=== PATIENT | female | born 1990 | race Caucasian/White ===

== ENCOUNTER → 2018-05-20 | Outpatient (REF) | payer BC ==
[2018-05-20 18:02] LABS: HEMATOCRIT 38.3 % (36.0-47.0); HEMOGLOBIN 13.2 g/dl (12.0-15.5); MEAN CORPUSCULAR HEMOGLOBIN 31.7 pg (27.0-33.0); MEAN CORPUSCULAR HGB CONC 34.5 g/dl (32.0-36.5); MEAN CORPUSCULAR VOLUME 91.8 fl (80.0-96.0); PLATELET COUNT, AUTOMATED 240 10^3/uL (150-450); RED BLOOD COUNT 4.17 10^6/uL (4.00-5.40); WHITE BLOOD COUNT 8.7 10^3/uL (4.0-10.0)
[2018-05-20 18:44] LABS: HCG, SERUM QUANTITATIVE 78298 MIU/ML
[2018-05-21 11:57] LABS: RUBELLA IgG QUALITATIVE IMMUNE (IMMUNE)
[2018-05-21 12:09] LABS: HBsAg Prenatal NEGATIVE (NEGATIVE)
[2018-05-21 12:27] LABS: HEPATITIS C VIRUS ABY INDEX < 0.0 INDEX (<0.8)
[2018-05-21 12:27] LABS: HIV 1&2 SCREEN CENTAUR NEGATIVE (NEGATIVE)
== END ==
LOC: M LAB REF 16:56
DX: O36.80X0 Pregnancy with inconclusive fetal viability, not applicable or unspecified (principal); Z3A.00 Weeks of gestation of pregnancy not specified
CPT/HCPCS: 86762

== ENCOUNTER → 2018-08-10 | Outpatient (REF) | payer BC | LOC: M LAB REF 13:30 | DX: Z34.02 Encounter for supervision of normal first pregnancy, second trimester (principal) | CPT/HCPCS: 87186 ==

== ENCOUNTER → 2018-10-28 | Outpatient (REF) | payer BC | LOC: M LAB REF 16:52 | PROVIDERS: ATTEND Obstetrics & Gynecology | DX: Z34.03 Encounter for supervision of normal first pregnancy, third trimester (principal) ==

== ENCOUNTER 2018-12-08 00:53 | Inpatient (IN) | payer BC ==
[2018-12-08] VITALS (48 sets, daily range): BP systolic 123–187; BP diastolic 61–102
[~2018-12-08] VITALS: Ht 165.1 cm; Wt 83.6 kg
[2018-12-08 02:53] LABS: HEMATOCRIT 37.4 % (36.0-47.0); HEMOGLOBIN 12.3 g/dl (12.0-15.5); MEAN CORPUSCULAR HEMOGLOBIN 30.2 pg (27.0-33.0); MEAN CORPUSCULAR HGB CONC 32.9 g/dl (32.0-36.5); MEAN CORPUSCULAR VOLUME 91.9 fl (80.0-96.0); PLATELET COUNT, AUTOMATED 208 10^3/uL (150-450); RED BLOOD COUNT 4.07 10^6/uL (4.00-5.40); WHITE BLOOD COUNT 13.4 10^3/uL (4.0-10.0)
[2018-12-08] MEDS ORDERED: FENTANYL 2MCG/ML ROPIVACAINE 0.2% IN 0.9% NACL 100ML IVBAG As Ordered ONE (03:05)
[2018-12-08] MEDS ORDERED: AMPICILLIN 2 GM VIAL As Ordered ONE (03:31)
[2018-12-08] MEDS ORDERED: PRENTAB9 PO (03:56)
[2018-12-08] MEDS ORDERED: AMPICILLIN SOD 2 GM in D5W MINI-BAG PLUS 100 ML IV ONE (04:00)
[2018-12-08] MEDS: FENTANYL/ROPIVACAINE/NACL BAG 100 ML EPIDURAL SCH ×2 (04:42→11:28)
[2018-12-08] MEDS ORDERED: NALOXONE INJ 0.4 MG/1 ML VIAL (J2310) IV PRN (04:53)
[2018-12-08] MEDS ORDERED: EPIDURAL/PCA KEYS XX PRN (04:53)
[2018-12-08] MEDS ORDERED: ONDANSETRON 4MG/2ML VIAL (J2405) IV PRN (04:53)
[2018-12-08] MEDS ORDERED: ePHEDrine SULFATE 25 MG/5 ML(5MG/ML) SYRINGE IV PRN (04:53)
[2018-12-08] MEDS ORDERED: EPIDURAL COMMENT XX SCH (04:53)
[2018-12-08] MEDS ORDERED: LACTATED RINGER'S 1000 ML IV PRN (04:53)
[2018-12-08] MEDS ORDERED: REFRIGERATOR IV KEYS XX PRN (04:53)
[2018-12-08] MEDS ORDERED: diphenhydrAMINE INJ 50MG/ML VIAL (J1200) IV PRN (04:53)
[2018-12-08] MEDS ORDERED: OXYTOCIN DRIP 30 UNITS in APPROPRIATE DILUENT 1 EA IV SCH ×2 (05:15→14:30)
[2018-12-08] MEDS: AMPICILLIN SOD 1 GM in D5W MINI-BAG PLUS 50 ML IV SCH ×2 (08:08→12:14)
[2018-12-08] MEDS: PRENATAL VITAMINS CHEWABLE TABLET PO SCH (09:00)
[2018-12-08] MEDS ORDERED: DIBUCAINE 1% OINTMENT 30GM TOP PRN (14:15)
[2018-12-08] MEDS ORDERED: LR 1,000 ML IV SCH (14:15)
[2018-12-08] MEDS ORDERED: RHOGAM 300 MCG (1500 IU) INJ (J2790) IM SCH (14:15)
[2018-12-08] MEDS ORDERED: METHYLERGONOVINE MALEATE 0.2 MG TAB PO PRN (14:15)
[2018-12-08] MEDS ORDERED: MEASLES,MUMPS,RUBELLA VACCINE INJ (MMR-II) (90707) SC SCH (14:15)
[2018-12-08 14:20] LABS: CORD GAS ABE A -6.1; CORD GAS HCO3 A 22.1 MEQ/L; CORD GAS O2 SAT A 72.4 %; CORD GAS PCO2 A 53.9 mmHg; CORD GAS PH A 7.231 UNITS; CORD GAS PO2 A 35.5 mmHg; CORD GAS SBC A 18.9 MEQ/L; CORD GAS TCO2 A 23.8 MEQ/L
[2018-12-08 14:24] LABS: CORD GAS HCO3 V 19.8 MEQ/L; CORD GAS O2 SAT V 73.6 %; CORD GAS PCO2 V 40.2 mmHg; CORD GAS PH V 7.311 UNITS; CORD GAS PO2 V 33.1 mmHg; CORD GAS SBC V 19.1 MEQ/L; CORD GAS TCO2 V 21.1 MEQ/L
[2018-12-08] MEDS: IBUPROFEN 800 MG TAB PO PRN (14:59)
[2018-12-08] MEDS: DOCUSATE SODIUM 100 MG CAP PO SCH (20:48)
[2018-12-08] MEDS: ACETAMINOPHEN 500 MG TAB PO PRN (21:12)
[2018-12-09] MEDS: IBUPROFEN 800 MG TAB PO PRN ×2 (01:00→23:12)
[2018-12-09 06:00] VITALS: BP 134/82
[2018-12-09] MEDS: PRENATAL VITAMINS CHEWABLE TABLET PO SCH (08:29)
[2018-12-09] MEDS: ACETAMINOPHEN 500 MG TAB PO PRN (08:29)
[2018-12-09] MEDS: DOCUSATE SODIUM 100 MG CAP PO SCH ×2 (08:29→21:00)
--- NOTE | 2018-12-09 11:22 | HPE ---
DATE OF ADMISSION: 12/08/2018 HISTORY: Jenifer is a 28-year-old female, 1, para 0, with an expected date of confinement (EDC) of 12/02/2018, estimated gestational age (EGA) of 40-6/7 weeks gestation who presented to labor and delivery with complaints of contractions. Upon evaluation, she was found to be in active labor. At this point, a decision was made for admission. Her record was reviewed which was essentially unremarkable. LABS: Blood type is O+, rubella immune, hepatitis negative, HIV negative, GC and chlamydia negative. 1-hour sugar testing was within normal limits. Her GBS is negative. PAST MEDICAL HISTORY: Denies. PAST SURGICAL HISTORY: [place] tooth extraction. SOCIAL HISTORY: The patient is single. Denies any alcohol, drugs or cigarette smoking. REVIEW OF SYSTEMS: Unremarkable. MEDICATIONS: vitamin. ALLERGIES: No known drug allergies. PHYSICAL EXAMINATION ON ADMISSION: HEENT: Grossly within normal limits. Abdomen: Soft, nontender, nondistended. Extremities: No clubbing, cyanosis or edema. Vaginal Exam: 5 cm, 100%, fetus at -1 station in a vertex position. Tracing reviewed, category one tracing. ASSESSMENT: Intrauterine at 40-6/7 weeks gestation in labor. PLAN: Admit to labor and delivery. Routine labs sent. Pain management discussed. The patient opts for an epidural. Will continue to monitor. Anticipate delivery.
--- NOTE | 2018-12-09 11:54 | DN ---
DATE OF DELIVERY: 12/08/2018 Jenifer is a 28-year-old female, 1, para 0, who was admitted at 40-6/7 weeks gestation in active labor. She progressed to fully dilated, pushed for approximately an hour and a half, delivered a live male in occiput anterior position. scores 9/9, birthweight 8 pounds 6 ounces. Placenta delivered spontaneously intact, two-vessel cord. A second-degree midline perineal laceration was noted which was repaired using #2-0 chromic. Estimated blood loss 350 mL. Both mother and baby in stable condition.
[2018-12-09 18:00] VITALS: BP 144/75
[2018-12-10 06:08] VITALS: BP 125/67
[2018-12-10] MEDS: PRENATAL VITAMINS CHEWABLE TABLET PO SCH (08:36)
[2018-12-10] MEDS: DOCUSATE SODIUM 100 MG CAP PO SCH (08:36)
[2018-12-10] MEDS ORDERED: MAPA500T2 PO (10:15)
[2018-12-10] MEDS ORDERED: IBUP-1114 PO (10:15)
== END 2018-12-10 11:36 | disposition home or self-care (01) | DRG 560 ==
LOC: M LDO 00:53 → M OBS 02:22 → M LDI 03:07 → M OBS 16:42
PROVIDERS: ADMIT Obstetrics & Gynecology; ATTEND Obstetrics & Gynecology
PROC: 10E0XZZ Delivery of Products of Conception, External Approach (ICD-10-PCS; principal; 2018-12-08)
PROC: 0KQM0ZZ Repair Perineum Muscle, Open Approach (ICD-10-PCS; 2018-12-08)
DX: O48.0 Post-term pregnancy (principal); O70.1 Second degree perineal laceration during delivery; Z3A.40 40 weeks gestation of pregnancy; Z37.0 Single live birth

== ENCOUNTER → 2019-12-20 | Outpatient (REF) | payer BC ==
[~2019-12-20] MED LIST: IBUP-1114 PO; MAPA500T2 PO; PRENTAB9 PO
[2019-12-20 21:53] LABS: INFLUENZA A AMPLIFICATION NEGATIVE (NEGATIVE); INFLUENZA B AMPLIFICATION NEGATIVE (NEGATIVE)
== END ==
LOC: M LAB 21:06
PROVIDERS: ATTEND Physician Assistant
DX: R50.9 Fever, unspecified (principal)

== ENCOUNTER → 2020-01-02 | Outpatient (REF) | payer BC ==
[2020-01-02 21:07] LABS: INFLUENZA A AMPLIFICATION NEGATIVE (NEGATIVE); INFLUENZA B AMPLIFICATION NEGATIVE (NEGATIVE)
== END ==
LOC: M LAB REF 20:13
PROVIDERS: ATTEND Physician Assistant Medical
DX: J11.1 Influenza due to unidentified influenza virus with other respiratory manifestations (principal)

== ENCOUNTER → 2020-09-06 | Outpatient (REF) | payer BC ==
[2020-09-06 17:06] LABS: HEMATOCRIT 37.7 % (36.0-47.0); HEMOGLOBIN 12.2 g/dl (12.0-15.5); MEAN CORPUSCULAR HEMOGLOBIN 30.7 pg (27.0-33.0); MEAN CORPUSCULAR HGB CONC 32.4 g/dl (32.0-36.5); MEAN CORPUSCULAR VOLUME 94.7 fl (80.0-96.0); PLATELET COUNT, AUTOMATED 199 10^3/uL (150-450); RED BLOOD COUNT 3.98 10^6/uL (4.00-5.40)
[2020-09-06 17:59] LABS: HCG, SERUM QUANTITATIVE 122875 MIU/ML; HEPATITIS B SURFACE ANTIGEN NEGATIVE (NEGATIVE)
== END ==
LOC: M LAB REF 16:22
PROVIDERS: ATTEND Obstetrics & Gynecology
DX: Z32.01 Encounter for pregnancy test, result positive (principal)

== ENCOUNTER → 2020-09-12 | Outpatient (CLI) | payer OTHER ==
--- NOTE | 2020-09-13 08:45 | REP ---
INDICATION: 036.80 DATING/VIABILITY/INCONSLUSIVE VIABILITY COMPARISON: None. TECHNIQUE: Transabdominal obstetrical ultrasound with color Doppler evaluation. FINDINGS: Single live early intrauterine is appreciated. Gestational sac with yolk sac and pole identified. [place]-rump length of 18 mm corresponds to 8 weeks 2 days gestational age with estimated date of delivery 04/22/2021. heart rate equals 170 beats per minute. No gross abnormalities are identified. Left maternal ovary includes 4.4 x 4.3 x 2.9 cm cyst likely corpus luteum. IMPRESSION: Single live early intrauterine at 8 weeks 2 days gestational age. Complete anatomical assessment should be performed and 19-20 weeks. <Electronically signed by Ramon Soares > 09/13/20 [id number]
== END ==
LOC: M WHC 11:33
PROVIDERS: ATTEND Obstetrics & Gynecology
DX: O36.80X0 Pregnancy with inconclusive fetal viability, not applicable or unspecified (principal)

== ENCOUNTER → 2020-10-04 | Outpatient (REF) | payer OTHER ==
[2020-10-04 15:10] LABS: HIV 1&2 SCREEN CENTAUR NEGATIVE (NEGATIVE)
== END ==
LOC: M LAB REF 12:36
PROVIDERS: ATTEND Obstetrics & Gynecology
DX: Z34.81 Encounter for supervision of other normal pregnancy, first trimester (principal)

== ENCOUNTER → 2020-12-06 | Outpatient (CLI) | payer OTHER ==
--- NOTE | 2020-12-07 04:17 | REP ---
INDICATION: ANATOMY COMPARISON: 09/12/2020 TECHNIQUE: Transabdominal obstetrical ultrasound with color Doppler evaluation. FINDINGS: Examination demonstrates a single live intrauterine in breech presentation. motion is identified by technologist. Placenta is noted anterior and grade 1 without evidence for placenta previa or abruption. Amniotic fluid volume is normal. Cervix measures 3.8 cm in length and appears closed.. Gestational age by LMP 21 weeks 0 days with ALEJANDRINA 04/18/2021. Gestational age by current measurements 21 weeks 1 day with ALEJANDRINA 04/17/2021. FHR equals 156 beats per minute. BPD: 4.7 cm twenty weeks 1 day HC: 18.2 cm 20 weeks 4 days AC: 17.5 cm there is 22 weeks 3 days FL: 3.5 cm 21 weeks 1 day HL: 3.4 cm 21 weeks 4 days HC/AC: 1.04 Estimated weight 442 grams (53rdpercentile). Anatomical assessment demonstrates normal structures including cranium, choroid plexus, cavum, cerebellum/posterior fossa, facial features, lungs, four-chamber heart/ventricular outflow tracts, diaphragm, stomach, cord insertion/three-vessel cord, kidneys/bladder, spine, and extremities. IMPRESSION: Single live intrauterine in breech presentation demonstrating appropriate estimated weight and growth. Anatomical assessment is complete and normal. <Electronically signed by Ramon Soares > 12/07/20 [id number]
== END ==
LOC: M WHC 13:32
PROVIDERS: ATTEND Obstetrics & Gynecology
DX: Z36.9 Encounter for antenatal screening, unspecified (principal); Z3A.21 21 weeks gestation of pregnancy

== ENCOUNTER → 2021-02-22 | Outpatient (CLI) | payer OTHER ==
[2021-02-22 08:13] LABS: HEMOGLOBIN 10.9 g/dl (12.0-15.5); MEAN CORPUSCULAR HEMOGLOBIN 29.2 pg (27.0-33.0); MEAN CORPUSCULAR HGB CONC 32.1 g/dl (32.0-36.5); MEAN CORPUSCULAR VOLUME 91.2 fl (80.0-96.0); PLATELET COUNT, AUTOMATED 214 10^3/uL (150-450); RED BLOOD COUNT 3.73 10^6/uL (4.00-5.40); WHITE BLOOD COUNT 8.8 10^3/uL (4.0-10.0)
== END ==
LOC: M LAB 06:44
PROVIDERS: ATTEND Advanced Practice Midwife
DX: Z34.82 Encounter for supervision of other normal pregnancy, second trimester (principal); Z3A.00 Weeks of gestation of pregnancy not specified

== ENCOUNTER → 2021-02-26 | Outpatient (CLI) | payer OTHER | LOC: M LAB 08:25 | PROVIDERS: ATTEND Advanced Practice Midwife | DX: O99.810 Abnormal glucose complicating pregnancy (principal) ==

== ENCOUNTER → 2021-03-22 | Outpatient (REF) | payer OTHER | LOC: M LAB REF 12:02 | PROVIDERS: ATTEND Advanced Practice Midwife | DX: Z34.83 Encounter for supervision of other normal pregnancy, third trimester (principal) ==

== ENCOUNTER 2021-04-21 02:25 | Inpatient (IN) | payer OTHER ==
[2021-04-21] VITALS (23 sets, daily range): BP systolic 119–163; BP diastolic 57–101
[~2021-04-21] VITALS: Ht 165.1 cm; Wt 86.4 kg
[2021-04-21] MEDS ORDERED: LACTATED RINGER'S 1000 ML IV STA (03:04)
[2021-04-21] MEDS ORDERED: LR 1,000 ML IV SCH (03:05)
[2021-04-21] MEDS ORDERED: TRANEXAMIC ACID INJection 1,000 MG in NS 100 ML IV PRN (03:05)
[2021-04-21] MEDS ORDERED: LIDOCAINE 1% MDV 20ML VIAL INFIL PRN (03:05)
[2021-04-21] MEDS ORDERED: CARBOPROST TROMETHAMINE 250 MCG/ML AMP IM PRN (03:05)
[2021-04-21] MEDS ORDERED: METHYLERGONOVINE MALEATE 0.2 MG/ML VIAL (J2210) IM PRN (03:05)
[2021-04-21] MEDS ORDERED: OXYTOCIN DRIP 30 UNITS in IV 1 EA IV PRN (03:05)
[2021-04-21 03:34] LABS: HEMATOCRIT 32.3 % (36.0-47.0); HEMOGLOBIN 10.3 g/dl (12.0-15.5); MEAN CORPUSCULAR HEMOGLOBIN 26.4 pg (27.0-33.0); MEAN CORPUSCULAR HGB CONC 31.9 g/dl (32.0-36.5); MEAN CORPUSCULAR VOLUME 82.8 fl (80.0-96.0); PLATELET COUNT, AUTOMATED 223 10^3/uL (150-450); WHITE BLOOD COUNT 11.3 10^3/uL (4.0-10.0)
[2021-04-21] MEDS ORDERED: PROMETHAZINE INJ 25 MG/ML VIAL (J2550) IV ONE (03:55)
[2021-04-21] MEDS ORDERED: BUTORPHANOL 2 MG/ML INJ (J0595) IV ONE (03:55)
[2021-04-21] MEDS ORDERED: OXYTOCIN DRIP 30 UNITS in IV 1 EA IV SCH ×2 (07:00→09:55)
[2021-04-21] MEDS ORDERED: FENTANYL 2MCG/ML ROPIVACAINE 0.2% IN 0.9% NACL 100ML IVBAG As Ordered ONE (07:28)
[2021-04-21] MEDS ORDERED: EPIDURAL COMMENT XX SCH (08:15)
[2021-04-21] MEDS ORDERED: diphenhydrAMINE 50MG/ML VIAL (J1200) IV PRN (08:15)
[2021-04-21] MEDS ORDERED: ePHEDrine SULFATE 25 MG/5 ML(5MG/ML) SYRINGE IV PRN (08:15)
[2021-04-21] MEDS ORDERED: REFRIGERATOR IV KEYS XX PRN (08:15)
[2021-04-21] MEDS ORDERED: FENTANYL/ROPIVACAINE/NACL BAG 100 ML EPIDURAL SCH (08:15)
[2021-04-21] MEDS ORDERED: LACTATED RINGER'S 1000 ML IV PRN (08:15)
[2021-04-21] MEDS ORDERED: NALOXONE INJ 0.4MG/1ML VIAL (J2310 PER 1MG) IV PRN (08:15)
[2021-04-21] MEDS ORDERED: EPIDURAL/PCA KEYS XX PRN (08:15)
[2021-04-21] MEDS ORDERED: ONDANSETRON 4MG/2ML VIAL IV PRN (08:15)
[2021-04-21] MEDS: PRENATAL VITAMINS CHEWABLE TABLET PO SCH (09:00)
[2021-04-21 09:49] LABS: CORD GAS HCO3 A 22.4 MEQ/L; CORD GAS O2 SAT A 35.6 %; CORD GAS PCO2 A 59.8 mmHg; CORD GAS PH A 7.191 UNITS; CORD GAS PO2 A 19.1 mmHg; CORD GAS SBC A 17.4 MEQ/L; CORD GAS TCO2 A 24.2 MEQ/L
[2021-04-21 09:51] LABS: CORD GAS ABE V -7.7; CORD GAS HCO3 V 18.2 MEQ/L; CORD GAS O2 SAT V 67.5 %; CORD GAS PCO2 V 38.9 mmHg; CORD GAS PH V 7.288 UNITS; CORD GAS PO2 V 30.1 mmHg; CORD GAS SBC V 17.6 MEQ/L; CORD GAS TCO2 V 19.4 MEQ/L
[2021-04-21] MEDS ORDERED: IBUPROFEN 800 MG TAB PO PRN (09:55)
[2021-04-21] MEDS ORDERED: ACETAMINOPHEN TAB 650MG DOSE (2X325MG) PO PRN (09:55)
[2021-04-21] MEDS ORDERED: RHOGAM 300 MCG (1500 IU) INJ (J2790) IM SCH (09:55)
[2021-04-21] MEDS ORDERED: MEASLES,MUMPS,RUBELLA VACCINE INJ (MMR-II) (90707) SC SCH (09:55)
[2021-04-21] MEDS ORDERED: ACETAMINOPHEN 500 MG TAB PO PRN (09:55)
[2021-04-21] MEDS ORDERED: DOCUSATE SODIUM 100MG CAPSULE PO PRN (09:55)
[2021-04-21] MEDS ORDERED: METHYLERGONOVINE MALEATE 0.2 MG TAB PO PRN (09:55)
[2021-04-21] MEDS ORDERED: IBUPROFEN 600MG TAB PO PRN (09:55)
[2021-04-21] MEDS ORDERED: MOM 30ML SUSPENSION UDC PO PRN (09:55)
--- NOTE | 2021-04-21 14:06 | HPE ---
HISTORY AND PHYSICAL DATE OF ADMISSION: 04/21/2021 HISTORY OF PRESENT ILLNESS: Jenifer is a 30-year-old female, 2, para 1-0-0-1 with an estimated date of confinement (EDC) of 04/22/2021, estimated gestational age (EGA) 39-6/7 weeks' gestation who is being admitted after presenting with complaint of contractions. Upon evaluation, she was found to be in labor. At this point, the decision was made for admission. record reviewed, which was essentially unremarkable. LABORATORIES: Blood type O positive. Rubella immune. Hepatitis negative. Human immunodeficiency virus (HIV) negative. Gonorrhea and chlamydia negative. One-hour sugar testing was abnormal at 140, at three hours was within normal limits. Group B Streptococcus (GBS) negative. PAST MEDICAL HISTORY: Denies. PAST SURGICAL HISTORY: Significant for wisdom tooth extraction. SOCIAL HISTORY: Denies any alcohol, drugs or smoking. REVIEW OF SYSTEMS: Unremarkable. MEDICATIONS: vitamins. ALLERGIES: No known drug allergies. PHYSICAL EXAMINATION: HEENT: Grossly within normal limits. ABDOMEN: Soft, nontender, nondistended. EXTREMITIES: No clubbing, cyanosis or edema. VAGINAL EXAM: 3-4 cm, 80% effaced, fetus at -2 station in vertex position. TRACING: Tracing reviewed. Category 1 tracing. ASSESSMENT: Intrauterine at 39-6/7 weeks' gestation being admitted in labor. PLAN: Admit to labor and delivery. Routine labs sent. Pain management discussed. Patient opted for an epidural. Will continue to monitor. Anticipate delivery.
[2021-04-21] MEDS ORDERED: DOCUSATE SODIUM 100MG CAPSULE PO SCH (21:00)
[2021-04-22 06:00] VITALS: BP 120/64
--- NOTE | 2021-04-22 08:47 | IPNPDOC ---
Progress Note Date of Service: Apr 22, 2021 Day#: 1 Progress Note PPD 1 SUBJECT: Jenifer is a 30yo s/p uncomplicated after presenting in active labor at term, doing well day # 1. She has been ambulating, voiding spontaneously without issue and tolerating regular diet. Breast feeding without issue. Reports lochia is like a normal period. No n/v/f/c/CP/SOB. OBJECTIVE: VITAL SIGNS: Within normal limits, afebrile. Alert and oriented times three. Abdomen: Fundus firm at U-2. Soft, NTTP. Extremities: no pain with palpation of calves ASSESSMENT: Jenifer is a 30yo s/p uncomplicated after presenting in active labor at term, doing well day # 1. Vitals within normal limits, afebrile, hemodynamically stable with no evidence of infection. PLAN: 1. Discharge to home today. 2. Tylenol and Motrin for pain. 3. Encourage breast feeding and ambulation. 4. Interested in Mirena IUD, will discuss further at 6wk PP visit 5. Routine PP visit in 6 weeks in clinic. 6. Discussed return precautions at length. 7. Vaginal rest and no heavy lifting 6 weeks Na Okeefe MD VS, I&O, [facility]H, [facility] Vital Signs/I&O Vital Signs Date Time Temp Pulse Resp B/P (MAP) Pulse Ox O2 Delivery O2 Flow Rate FiO2 04/22/21 06:00 97.6 79 18 120/64 (82) 98 Room Air I&O- Last 24 Hours up to 6 AM 04/22/21 06:00 Intake Total 1450 ml Output Total 950 ml Balance 500 ml Laboratory Data 24H LABS Laboratory Tests 2 04/21/21 09:44: Cord Arterial Blood pH 7.191, Cord Arterial Blood PCO2 59.8, Cord Arterial Blood PO2 19.1, Cord Arterial Blood HCO3 22.4, Cord Arterial Blood Total CO2 24.2, Cord Arterial Blood Base Excess -7.0, Cord Arterial Base Excess (Standard 17.4, Cord Arterial Bld Oxygen Saturation 35.6, Cord Venous Blood pH 7.288, Cord Venous Blood PCO2 38.9, Cord Venous Blood PO2 30.1, Cord Venous Blood HCO3 18.2, Cord Venous Blood Total CO2 19.4, Cord Venous Base Excess (Actual) -7.7, Cord Venous Base Excess (Standard) 17.6, Cord Venous Blood Oxygen Saturation 67.5 Na Okeefe MD Apr 22, 2021 08:47
--- NOTE | 2021-04-22 08:53 | DS.PDOC ---
Discharge Summary General Date of Admission Apr 21, 2021 at 03:04 Date of Discharge Apr 22, 2021 Attending Physician: West Anguiano DO Discharge Summary PROCEDURES PERFORMED DURING STAY: spontaneous vaginal delivery ADMITTING DIAGNOSES: 1. Active labor at term DISCHARGE DIAGNOSES: 1. Active labor at term, delivered COMPLICATIONS/CHIEF COMPLAINT: LABOR. HISTORY OF PRESENT ILLNESS/HOSPITAL COURSE: Jenifer is a 30yo s/p uncomplicated after presenting in active labor at term, doing well day # 1. She had a benign course. At time of discharge, vitals were within normal limits, afebrile, hemodynamically stable with no evidence of infection. DISCHARGE MEDICATIONS: Please see below. ALLERGIES: Please see below. PHYSICAL EXAMINATION ON DISCHARGE: VITAL SIGNS: Within normal limits, afebrile. Alert and oriented times three. Abdomen: Fundus firm at U-2. Soft, NTTP. Extremities: no pain with palpation of calves LABORATORY DATA: Please see below. DISCHARGE PLAN/INSTRUCTIONS: 1. Discharge to home today. 2. Tylenol and Motrin for pain. 3. Encourage breast feeding and ambulation. 4. Interested in Mirena IUD, will discuss further at 6wk PP visit 5. Routine PP visit in 6 weeks in clinic. 6. Discussed return precautions at length. 7. Vaginal rest and no heavy lifting 6 weeks DISCHARGE CONDITION: Stable TIME SPENT ON DISCHARGE: Greater than 20 minutes. Na Okeefe MD Vital Signs/I&Os Vital Signs Date Time Temp Pulse Resp B/P (MAP) Pulse Ox O2 Delivery O2 Flow Rate FiO2 04/22/21 06:00 97.6 79 18 120/64 (82) 98 Room Air I&O- Last 24 Hours up to 6 AM 04/22/21 06:00 Intake Total 1450 ml Output Total 950 ml Balance 500 ml Laboratory Data Labs 24H Laboratory Tests 2 04/21/21 09:44: Cord Arterial Blood pH 7.191, Cord Arterial Blood PCO2 59.8, Cord Arterial Blood PO2 19.1, Cord Arterial Blood HCO3 22.4, Cord Arterial Blood Total CO2 24.2, Cord Arterial Blood Base Excess -7.0, Cord Arterial Base Excess (Standard 17.4, Cord Arterial Bld Oxygen Saturation 35.6, Cord Venous Blood pH 7.288, Cord Venous Blood PCO2 38.9, Cord Venous Blood PO2 30.1, Cord Venous Blood HCO3 18.2, Cord Venous Blood Total CO2 19.4, Cord Venous Base Excess (Actual) -7.7, Cord Venous Base Excess (Standard) 17.6, Cord Venous Blood Oxygen Saturation 67.5 Discharge Medications Scheduled No.137/Iron/Folic Acd ( Vitamin Tablet) 1 Tab Tab, 1 TAB PO DAILY, (Reported) Allergies Coded Allergies: No Known Allergies (Unverified , 12/08/18) Na Okeefe MD Apr 22, 2021 08:53
[2021-04-22 09:45] VITALS: BP 120/64
[2021-04-22] MEDS: PRENATAL VITAMINS CHEWABLE TABLET PO SCH (10:37)
--- NOTE | 2021-04-22 15:59 | DN ---
DELIVERY NOTE DATE OF DELIVERY: 04/21/2021 TIME OF : Jenifer is a 30-year-old female, , para 1-0-0-1, who was admitted at 39-6/7ths weeks gestation in active labor. She then progressed to fully dilated, had artificial rupture of membrane, delivered a live male infant with a tight nuchal cord that tore on the perineum. was 3/8/8. weight is 8 pounds 15 ounces. The placenta delivered spontaneously intact. Three vessel cord. A second degree midline perineal laceration noted which was repaired using 3-0 chromic. Estimated blood loss 350 mL. Both mother and baby in stable condition. cc: [facility]
== END 2021-04-22 14:45 | disposition home or self-care (01) | DRG 807 ==
LOC: M LDO 02:25 → M LDI 03:04 → M OBS 12:10
PROVIDERS: ADMIT Obstetrics & Gynecology; ATTEND Obstetrics & Gynecology
PROC: 10E0XZZ Delivery of Products of Conception, External Approach (ICD-10-PCS; principal; 2021-04-21)
PROC: 0KQM0ZZ Repair Perineum Muscle, Open Approach (ICD-10-PCS; 2021-04-21)
PROC: 10907ZC Drainage of Amniotic Fluid, Therapeutic from Products of Conception, Via Natural or Artificial Opening (ICD-10-PCS; 2021-04-21)
DX: O70.1 Second degree perineal laceration during delivery (principal); Z37.0 Single live birth; Z3A.39 39 weeks gestation of pregnancy

== ENCOUNTER → 2021-08-09 | Outpatient (REF) | payer OTHER | LOC: M LAB REF 20:55 | PROVIDERS: ATTEND Physician Assistant | DX: J02.9 Acute pharyngitis, unspecified (principal) ==

== ENCOUNTER → 2021-10-28 | Outpatient (CLI) | payer OTHER | LOC: M PLAIMG 10:28 | PROVIDERS: ATTEND Family Medicine | DX: R51.9 Headache, unspecified (principal) ==

== ENCOUNTER → 2023-02-02 | Outpatient (CLI) | payer OTHER | LOC: M RAD 10:45 | PROVIDERS: ATTEND Family Medicine | DX: R51.9 Headache, unspecified (principal) ==

== ENCOUNTER → 2024-07-26 | Outpatient (REF) | payer OTHER ==
[2024-07-26 22:42] LABS: APPEARANCE, URINE HAZY (CLEAR); BACTERIA, URINE AUTO 1+ (NEGATIVE); BILIRUBIN, URINE AUTO NEGATIVE (NEGATIVE); BLOOD, URINE BLOOD 2+ (NEGATIVE); COLOR, URINE YELLOW (YELLOW); GLUCOSE, URINE (UA) AUTO NEGATIVE (NEGATIVE); KETONE, URINE AUTO TRACE mg/dL (NEGATIVE); LEUKOCYTE ESTERASE, URINE AUTO 3+ (NEGATIVE); MUCUS, URINE SMALL (NEGATIVE); NITRITE, URINE AUTO NEGATIVE (NEGATIVE); PROTEIN, URINE AUTO 1+ mg/dL (NEGATIVE); RBC, URINE AUTO 24 /HPF (0-3); SPECIFIC GRAVITY URINE AUTO 1.016 (1.002-1.035); SQUAMOUS EPITHELIAL CELL UR AU 7 /HPF (0-6); TRANSITIONAL EPITHELIAL AUTO 2 /HPF; UROBILINOGEN, URINE AUTO 0.2 mg/dL (0.0-2.0); WBC, URINE AUTO 135 /HPF (0-3)
== END ==
LOC: M LAB REF 21:57
PROVIDERS: ATTEND Physician Assistant Medical
DX: N39.0 Urinary tract infection, site not specified (principal)

== ENCOUNTER 2025-10-29 13:14 | Emergency (ER) | payer OTHER ==
[~2025-10-29] VITALS: Ht 165.1 cm; Wt 81.7 kg
[2025-10-29 13:42] LABS: BASO # 0.0 10^3/uL (0.0-0.2); BASO % 0.2 % (0.0-1.0); EOS # 0.2 10^3/uL (0.0-0.5); EOS % 2.7 % (0.0-3.0); LYMPH # 1.6 10^3/uL (1.5-5.0); LYMPH % 19.9 % (24.0-44.0); MONO # 0.7 10^3/uL (0.0-0.8); MONO % 8.6 % (2.0-8.0); NEUTROPHILS # 5.5 10^3/uL (1.5-8.5); NEUTROPHILS % 68.4 % (36.0-66.0); PLATELET COUNT, AUTOMATED 277 10^3/uL (150-450)
[2025-10-29 14:08] LABS: CK-MB VALUE MASS < 1.0 NG/ML (<3.6)
[2025-10-29 14:09] LABS: CPK CREATINE PHOSPHOKINASE 57 U/L (34-145); HCG, SERUM QUALITATIVE NEGATIVE (NEGATIVE)
[2025-10-29 14:10] LABS: ALT/SGPT 19 U/L (7.0-40); AST/SGOT 18 U/L (<34); CALCIUM LEVEL 9.4 MG/DL (8.5-10.1); CARBON DIOXIDE LEVEL 28 MMOL/L (20-31); CHLORIDE LEVEL 105 MMOL/L (98-107); CREATININE FOR GFR 0.83 MG/DL (0.55-1.30); GLOMERULAR FILTRATION RATE > 90.0 (>60); POTASSIUM SERUM 3.8 MMOL/L (3.5-5.1); SODIUM LEVEL 140 MMOL/L (136-145)
[2025-10-29] MEDS ORDERED: RIZA10TA2 PO (15:49)
[2025-10-29 16:16] LABS: INR 0.99
[2025-10-29 16:18] LABS: CK-MB VALUE MASS < 1.0 NG/ML (<3.6)
[2025-10-29 16:22] LABS: CPK CREATINE PHOSPHOKINASE 57 U/L (34-145)
[2025-10-29] MEDS ORDERED: ISOVUE-370 76% 100 ML VIAL As Ordered ONE (18:10)
[2025-10-29] MEDS: NS (Normal Saline) 0.9% 1,000 ML IV ONE (18:18)
[2025-10-29] MEDS: KETOROLAC 30 MG/ML 1 ML VIAL IV ONE (18:18)
[2025-10-29 18:31] LABS: KETONE, URINE AUTO RFX TRACE mg/dL (NEGATIVE); LEUKOCYTE ESTERASE UR AUTO RFX NEGATIVE (NEGATIVE); MUCUS, URINE RFX SMALL (NEGATIVE); NITRITE, URINE AUTO RFX NEGATIVE (NEGATIVE); RBC, URINE AUTO RFX 1 /HPF (0-3); SQUAM EPITHELIAL CELL UR AURFX 0 /HPF (0-6); WBC, URINE AUTO RFX 1 /HPF (0-3)
[2025-10-29 19:40] VITALS: BP 135/91
[2025-10-29 19:49] VITALS: TEMP 97.3; O2SAT 98
== END 2025-10-29 19:57 | disposition home or self-care (01) ==
LOC: M ED 13:14
DX: R07.9 Chest pain, unspecified (principal); Z79.899 Other long term (current) drug therapy
CPT/HCPCS: 71046; 71275; 80048; 80076; 81001; 82550; 82553; 84484; 84703; 85025; 85610; 85730; 93005; 93041; 94760; 96361; 96374; 99285; J1885; J2765; Q9967